=== PATIENT | male | born 1955 | race Caucasian/White ===

== ENCOUNTER 2017-04-29 06:59 | Emergency (ER) | payer OTHER, SELFPAY ==
[2017-04-29 07:00] VITALS: BP 172/87; PULSE 58; RESP 17; TEMP 36.6; O2SAT 94; BMI 28.5
--- NOTE | 2017-04-29 07:12 | ED.VISSUMM ---
- ER Visit Summary Date of Service: 04/29/17 Chief Complaint: Left flank pain History of Present Illness: The patient is a 61 M presenting with left flank pain. He states it started yesterday. Pain was in his left flank radiating around to his abdomen. He had suprapubic pain as well. He complained of urinary frequency. He has had nausea and vomiting. Denies diarrhea. He has a history of kidney stones. Last night he went to the [facility] ED. He had a CT scan performed and was told that he did not have a kidney stone on CT scan. He did have blood in his urine. He was sent home on Percocet. He presents today due to persistent pain. On arrival to the ED, patient states his pain is now completely resolved. Physical Examination: Vitals are stable. Patient is afebrile. Alert no acute distress. HEENT exam is unremarkable. Neck is supple. Lungs are clear and equal bilaterally. Heart is regular rate and rhythm. Abdomen is soft nontender nondistended. No guarding or rebound Back: nontender, no CVA tenderness Extremities are unremarkable. Skin is warm and dry. Remainder of exam is unremarkable. Emergency Department Course and Treatment: Patient is given IV fluids, Zofran. While in the emergency department patient's pain began to come back. CBC was normal except for hemoglobin 12.9. Chemistries normal except glucose 128, BUN 21, creatinine 1.32. On reevaluation, patient now has pain more in the mid abdomen. Liver lipase were added on and are normal. EKG is normal sinus rhythm with no acute ischemic changes. Troponin is negative. CTA chest abdomen pelvis was obtained. CTA chest shows no evidence of PE or dissection. CTA abdomen and pelvis shows findings suggestive of a recently passed left ureteral calculus with a calculus at the base of the left side of the bladder. Left perinephric stranding. Patient has urinated since the CT scan and believes that he passed the stone. He now states his pain is completely resolved. He will follow-up with his primary care physician and urologist as needed. He is advised return to ED for any worsening complaints. Disposition: Discharge home Impression: Left flank pain, recently passed stone. This note was generated with [employer] dictation software. It may contain incorrect words, spelling, and punctuation that were not noted in review of the chart prior to signing ED Disposition - Plan for ED Patient: Disposition: Home or Assisted Living Chief Complaint: Flank Pain Instructions: ED Stone Renal Passed Referrals: Fritz Hernadez [Primary Care Provider] - Pavel Purdy MD [STAFF PHYSICIAN] -
[2017-04-29 07:20] LABS: Bacteria 0 SEEN /hpf (None Seen); White Blood Cells 0 SEEN /hpf (0-5)
[2017-04-29] MEDS: 0.9% Normal Saline 1,000 ML 1000 ML IV (07:24)
[2017-04-29 07:34] LABS: Absolute Lymphocyte Count 0.81 X10^3/ul (0.83-4.51); Absolute Neutrophil Count 7.2 X10^3/uL (2.0-7.7); Basophil# 0.01 X10^3/uL; Basophil% 0.1 % (0-1); Eosinophil# 0.01 X10^3/uL; Eosinophils% 0.1 % (0-5); Hematocrit 38.8 % (40-54); Hemoglobin 12.9 g/dl (13.0-16.5); Lymphocyte # 0.81 X10^3/ul (4.0); Lymphocyte % 9.7 % (19-41); Mean Corp Hgb Conc 33.2 g/gl (32-36); Mean Corpuscular Hgb 30.5 pg (27.0-32.0); Mean Corpuscular Volume 91.7 fL (80-94); Mean Platelet Vol. 9.6 fl (6.2-12.0); Monocyte# 0.39 X10^3/uL; Monocyte% 4.7 % (0-10); Neutrophil # 7.15 X10^3/uL (2.7-7.7); Neutrophil % 85.3 % (47-70); Platelet Count 160 K/mm3 (150-450); RBC Distribution Width CV 13.3 % (11.6-14.6); RBC Distribution Width SD 44.1 fl (35.1-43.9); Red Blood Count 4.23 M/mm3 (4.6-6.2); White Blood Count 8.4 K/mm3 (4.4-11.0)
[2017-04-29 07:35] LABS: POSITIVE COUNT NO; POSITIVE DIFFERENTIAL NO; POSITIVE MORPHOLOGY NO
[2017-04-29 07:36] LABS: Color, Urine Yellow (Yellow); Glucose, Dipstick Normal (Normal); Ketone-Dipstick Negative (Negative); Leukocyte Esterase-Dipstick Negative /ul (Negative); Nitrite-Dipstick Negative (Negative); Occult Blood-Urine 50 /ul (Negative); Protein-Dipstick 15 mg/dl (Negative); Specific Gravity, Urine 1.025 (1.002-1.030); Urine Bilirubin Dipstick Negative (Negative); Urine Clarity Clear (Clear); Urine Urobilinogen Normal (Normal)
[2017-04-29 07:45] LABS: Anion Gap 10 (5-15); BUN 21 mg/dL (7-18); BUN/Creat Ratio 15.9 RATIO (10-20); Calcium,Total 8.7 mg/dL (8.5-10.1); Chloride 107 mmol/L (98-107); Creatinine, Serum 1.32 mg/dL (0.70-1.30); EST Glomerular Filtration Rate 58 mL/min (>60); Est Glom Filt Rate - Afr Amer 70 mL/min (>60); Glucose 128 mg/dL (74-106); Potassium 4.6 mmol/L (3.5-5.1); Sodium Level 142 mmol/L (136-145)
[2017-04-29 07:47] LABS: Hyaline Cast 0-5 SEEN /lpf (0-5); Mucous, Urine 1+ /hpf (<or=2+); Red Blood Cells-Urine 0-5 SEEN /hpf (0-5); Squamous Epithelial Cells - UA 0-5 SEEN /hpf (0-5)
[2017-04-29 08:21] LABS: AST(SGOT) 24 U/L (15-37); Alanine Aminotransfer ALT/SGPT 30 U/L (16-61); Albumin, Serum 3.9 g/dL (3.2-5.0); Alkaline Phosphatase 76 U/L (45-117); Bilirubin, Direct 0.12 mg/dL (0.00-0.30); Globulin 3.5 g/dL (2.2-4.2); Lipase 127 U/L (73-393); Protein, Total 7.4 g/dL (6.4-8.2)
--- NOTE | 2017-04-29 08:30 | CT_ITS ---
STUDY: CTA CHEST REASON FOR EXAM: Male, 61 years old. Left flank pain and left groin pain. RADIATION DOSAGE (If Supplied By Facility): CTDIvol = ( 16.40 ) mGy, DLP = ( 1044.66 ) mGycm TECHNIQUE: The examination was performed with the intravenous administration of 100 ml of Isovue 370 contrast material. Post-processing of the angiographic images was performed, with multiplanar reformation and 3D reconstruction. Individualized dose optimization techniques were used for this CT. COMPARISON: None. FINDINGS: Normal enhancement of the main pulmonary artery and right and left pulmonary arteries. Normal enhancement of the bilateral peripheral pulmonary arteries. There is no demonstrated pulmonary embolism. Normal thoracic aorta and visualized great vessels. There is no demonstrated aortic dissection. Normal heart and pericardium. Normal mediastinum. Normal hilar regions. Normal visualized trachea and bronchi. The lungs are well expanded. Mild degree of dependent bibasilar atelectasis. Normal pleura. Normal chest wall structures. Normal osseous structures. Normal visualized upper abdomen. IMPRESSION: Normal CTA chest examination, without a demonstrated pulmonary embolism or arterial dissection. Electronically Signed: Jeffrey Sherman MD at 9:18 EST Tel [phone], Service support , STUDY: CT ABDOMEN AND PELVIS WITH CONTRAST REASON FOR EXAM: Male, 61 years old. Left-sided groin pain and flank pain. RADIATION DOSAGE (If Supplied By Facility): CTDIvol = ( 16.40 ) mGy, DLP = ( 1044.66 ) mGycm TECHNIQUE: Transaxial images were obtained from the dome of the diaphragm to the symphysis pubis without oral contrast. 100 ml of Isovue 370 contrast was administered. Sagittal and coronal images were reconstructed. Individualized dose optimization techniques were used for this CT. COMPARISON: None. FINDINGS: Mild degree of dependent bibasilar atelectasis. The visualized portions of the heart are within normal limits. Normal liver. Normal gallbladder and extrahepatic biliary system. Normal spleen. Normal pancreas. Normal bilateral adrenal glands. Normal right kidney. Left perinephric stranding. Thickening of the left pararenal spaces. Mild left hydronephrosis and left hydroureter. A tiny calcification is seen at the base of the bladder on the left side just distal to the left ureterovesical junction. This most likely presents a recently passed left ureteral calculus. Normal visualized stomach. Normal small intestine. There are multiple colonic diverticula consistent with diverticulosis. The appendix is visualized and appears normal. There is diffuse atherosclerotic calcification of the abdominal aorta, without a demonstrated aneurysm. Normal inferior vena cava. There is borderline retroperitoneal lymphadenopathy with enlarged nodes no greater than 10mm in the short axis diameter. Normal urinary bladder. There is a small umbilical hernia containing fat. Normal osseous structures. CT/CTA Chest W/WO Contrast IMPRESSION: Findings suggestive of a recently passed left ureteral calculus with a calculus at the base of the left side of the bladder. Left perinephric stranding. Electronically Signed: Jeffrey Sherman MD at 9:21 EST Tel [phone], Service support ,
--- NOTE | 2017-04-29 08:30 | CT_ITS ---
STUDY: CTA CHEST REASON FOR EXAM: Male, 61 years old. Left flank pain and left groin pain. RADIATION DOSAGE (If Supplied By Facility): CTDIvol = ( 16.40 ) mGy, DLP = ( 1044.66 ) mGycm TECHNIQUE: The examination was performed with the intravenous administration of 100 ml of Isovue 370 contrast material. Post-processing of the angiographic images was performed, with multiplanar reformation and 3D reconstruction. Individualized dose optimization techniques were used for this CT. COMPARISON: None. FINDINGS: Normal enhancement of the main pulmonary artery and right and left pulmonary arteries. Normal enhancement of the bilateral peripheral pulmonary arteries. There is no demonstrated pulmonary embolism. Normal thoracic aorta and visualized great vessels. There is no demonstrated aortic dissection. Normal heart and pericardium. Normal mediastinum. Normal hilar regions. Normal visualized trachea and bronchi. The lungs are well expanded. Mild degree of dependent bibasilar atelectasis. Normal pleura. Normal chest wall structures. Normal osseous structures. Normal visualized upper abdomen. IMPRESSION: Normal CTA chest examination, without a demonstrated pulmonary embolism or arterial dissection. Electronically Signed: Jeffrey Sherman MD at 9:18 EST Tel [phone], Service support , STUDY: CT ABDOMEN AND PELVIS WITH CONTRAST REASON FOR EXAM: Male, 61 years old. Left-sided groin pain and flank pain. RADIATION DOSAGE (If Supplied By Facility): CTDIvol = ( 16.40 ) mGy, DLP = ( 1044.66 ) mGycm TECHNIQUE: Transaxial images were obtained from the dome of the diaphragm to the symphysis pubis without oral contrast. 100 ml of Isovue 370 contrast was administered. Sagittal and coronal images were reconstructed. Individualized dose optimization techniques were used for this CT. COMPARISON: None. FINDINGS: Mild degree of dependent bibasilar atelectasis. The visualized portions of the heart are within normal limits. Normal liver. Normal gallbladder and extrahepatic biliary system. Normal spleen. Normal pancreas. Normal bilateral adrenal glands. Normal right kidney. Left perinephric stranding. Thickening of the left pararenal spaces. Mild left hydronephrosis and left hydroureter. A tiny calcification is seen at the base of the bladder on the left side just distal to the left ureterovesical junction. This most likely presents a recently passed left ureteral calculus. Normal visualized stomach. Normal small intestine. There are multiple colonic diverticula consistent with diverticulosis. The appendix is visualized and appears normal. There is diffuse atherosclerotic calcification of the abdominal aorta, without a demonstrated aneurysm. Normal inferior vena cava. There is borderline retroperitoneal lymphadenopathy with enlarged nodes no greater than 10mm in the short axis diameter. Normal urinary bladder. There is a small umbilical hernia containing fat. Normal osseous structures. CT/CT ANGIO ABD&PEL W/O&W/DYE IMPRESSION: Findings suggestive of a recently passed left ureteral calculus with a calculus at the base of the left side of the bladder. Left perinephric stranding. Electronically Signed: Jeffrey Sherman MD at 9:21 EST Tel [phone], Service support ,
--- NOTE | 2017-04-29 08:32 | EKG12_ITS ---
Test Reason : Blood Pressure : / mmHG Vent. Rate : 072 BPM Atrial Rate : 072 BPM P-R Int : 162 ms QRS Dur : 084 ms QT Int : 408 ms P-R-T Axes : 073 049 042 degrees QTc Int : 446 ms Normal sinus rhythm Normal ECG Confirmed by SALTY AQUINO MD ([id number]), editor news YASSINE LINDO ([id number]) on 05/02/2017 2:47:17 PM Referred By: DEWEY Confirmed By:SALTY AQUINO MD
[2017-04-29 08:44] VITALS: BP 148/69; PULSE 61; RESP 15; O2SAT 93
[2017-04-29 09:59] VITALS: BP 113/57; PULSE 74; RESP 15; O2SAT 96
--- NOTE | 2017-04-29 10:02 | ED.DEP ---
ED Disposition - Plan for ED Patient: Chief Complaint: Flank Pain Instructions: ED Stone Renal Passed Referrals: Fritz Hernadez [Primary Care Provider] - Pavel Purdy MD [STAFF PHYSICIAN] -
== END 2017-04-29 10:13 | disposition home or self-care (01) ==
PROVIDERS: Emergency Provider Emergency Medicine; PCP Family Medicine
DX: R10.9 Unspecified abdominal pain (principal); N21.0 Calculus in bladder; I25.10 Atherosclerotic heart disease of native coronary artery without angina pectoris; Z87.442 Personal history of urinary calculi; Z79.82 Long term (current) use of aspirin; Z79.899 Other long term (current) drug therapy
CPT/HCPCS: 71275; 74174; 80048; 80076; 81001; 83690; 84484; 85025; 93005; 96360; 96361; 99285; J7030; Q9967

== ENCOUNTER 2019-06-22 10:36 | Emergency (ER) | payer MEDICARE, OTHER, SELFPAY ==
[2019-06-22 10:38] VITALS: BP 154/95; PULSE 99; RESP 17; TEMP 36.6; O2SAT 97; BMI 28.3
--- NOTE | 2019-06-22 10:53 | CT_ITS ---
STUDY: CT ABDOMEN AND PELVIS WITHOUT CONTRAST REASON FOR EXAM: Male, 63 years old. RIGHT SIDED ABDOMEN PAIN X 2 DAYS, H/O KIDNEY STONES RADIATION DOSAGE (If Supplied By Facility): CTDIvol = ( 14.34 ) mGy, DLP = ( 788.07 ) mGycm TECHNIQUE: Transaxial images were obtained from the dome of the diaphragm to the symphysis pubis without oral contrast, and without intravenous contrast. Sagittal and coronal images were reconstructed. Individualized dose optimization techniques were used for this CT. COMPARISON: Comparison is made with prior study dated April 29, 2017. FINDINGS: Linear increased markings at the left lung base suggestive of left basilar atelectasis. Coronary artery calcification. Normal liver. Normal gallbladder and extrahepatic biliary system. Normal spleen. Normal pancreas. Normal bilateral adrenal glands. There is engorgement of the right kidney with a mild degree of the right perinephric stranding. Mild left perinephric stranding. Normal visualized stomach. Normal small intestine. Diverticula are also seen in the descending colon with increased markings in the surrounding peritoneal fat. This extends into the proximal sigmoid colon. This is in keeping with the noncomplicated diverticulitis involving the left hemicolon. There are multiple colonic diverticula consistent with diverticulosis. The appendix is visualized and appears normal. There is diffuse atherosclerotic calcification of the abdominal aorta and the major visceral branches, without a demonstrated aneurysm. Normal inferior vena cava. There is borderline retroperitoneal lymphadenopathy with enlarged nodes no greater than 10mm in the short axis diameter. Normal urinary bladder. There is calcification of the vas deferens. There is a small umbilical hernia containing fat. Small left inguinal hernia containing fat. Normal osseous structures. CT/Abdomen/Pelvis without Cont IMPRESSION: Findings in keeping with a mild degree of diverticulitis involving the left hemicolon. Mild degree of the bilateral perinephric stranding. Electronically Signed: Jeffrey Sherman, at 11:20 EDT , Service support ,
--- NOTE | 2019-06-22 10:58 | ED.DCSUM_ITS ---
History of Present Illness Informant: Patient - Abdominal Pain/Flank Pain Onset: Days - 2 days Context: Gradual Onset Timing: Intermittent Quality: Sharp, Stabbing Location: Right Flank Current Severity: Mild Maximum Severity: Severe Worsened by: Nothing Relieved by: Nothing - Nausea/Vomiting/Emesis GI Symptom: Negative for: Nausea, Vomiting - Diarrhea/Melena/Hematochezia GI Symptom: Negative for: Diarrhea, Melena, Hematochezia Associated Symptoms: Negative for: Dysuria, Frequency, Hematuria, Urgency Narrative: 63-year-old male presents with concern for kidney stone. He has a history of kidney stones. Most recent was about 2 years ago. He has a history of requiring a ureteral stent. He has been having intermittent right flank pain and right lower quadrant pain for the last 2 days. He had some leftover Percocet and he had to take 2 doses yesterday but has not had pain today. He is concerned for a kidney stone. He has been urinating normally. No dysuria, lisa turia, frequency or urgency. No fevers chills vomiting or diarrhea. No chest pain or shortness of breath. No back pain. Prior similar symptoms: Yes Recent Illness/Hospitalization: No <Nav Kearney - Last Filed: 06/22/19 11:32> <Albino Hines - Last Filed: 06/22/19 15:08> Chief Complaint: Abd Pain Past Medical History Prior records reviewed: Yes Past Medical History: - - kidney stones Surgical History: - - ureteral stent Lives: With Family Smoking Status: Never smoker Alcohol: None Drugs: None <Nav K[place] - Last Filed: 06/22/19 11:32> <Albino Hines - Last Filed: 06/22/19 15:08> - Allergies and Home Meds Allergies/Adverse Reactions: Allergies No Known Allergies Allergy (Verified 06/22/19 10:38) Primary Care Physician: Fritz Hernadez MD [Primary Care Provider] - Review of Systems All systems negative except as indicated General: Denies: Chills, Fever, Malaise Eyes: Denies: Visual changes - bilaterally, Blurred Vision - bilaterally, Diplopia ENT: Denies: Rhinorrhea, Sore throat Cardiovascular: Denies: Chest pain, Palpitations, Heart racing Respiratory: Denies: Dyspnea, Cough, Sputum, Dyspnea on exertion, Orthopnea, Paroxysmal nocturnal dyspnea Gastrointestinal: Reports: Abdominal pain. Denies: Nausea, Vomiting, Diarrhea, Constipation, Melena, Hematochezia Genitourinary: Denies: Dysuria, Hematuria, Frequency Musculoskeletal: Denies: Myalgias, Arthralgias, Neck pain, Back pain Skin: Denies: Rash, Abscess Neurological: Denies: Headache, Weakness Psych: Denies: Depression, Anxiety <Nav K[place]ney - Last Filed: 06/22/19 11:32> Physical Exam Vital Signs/Narrative: Vital Signs Temp Pulse Resp BP Pulse Ox 06/22/19 10:38 97.8 F 99 17 154/95 H 97 Inital Vital Signs reviewed: Yes General: Well nourished, Well developed, No Acute Distress Head: Normocephalic, Atraumatic Eyes: Perrl, EOMI ENT: Moist mucous membranes Neck: Supple, Nontender, No lymphadenopathy, No JVD Cardiovascular: Regular rate, Regular rhythm, No murmurs Respiratory: No distress, CTA bilaterally, Chest nontender Abdomen: Soft, Nontender, Nondistended, Normal bowel sounds, No masses Back: Nontender, Normal Inspection Extremities: Nontender, No edema Skin: Normal color, No rash Neurological: Alert, Oriented x3 Psychological: Normal affect, Normal Mood <Nav Kearney - Last Filed: 06/22/19 11:32> Vital Signs/Narrative: Vital Signs Pulse Resp BP Pulse Ox 06/22/19 11:42 74 15 134/62 H 98 <Albino Hines - Last Filed: 06/22/19 15:08> Diagnostic/Tx/Re-eval CT: Flank - Medical Decision Making On arrival patient was not having pain and he declined analgesia. He also refused labs. He did provide a urinalysis which showed no sign of infection. CT abdomen and pelvis without contrast was obtained and demonstrated mild di verticulitis left hemicolon as well as mild degree of bilateral perinephric stranding. Repeat exam patient remains pain-free. Vital signs stable. He is able to tolerate by mouth at this time. We will discharge the patient home with Augmentin. I did him return precautions. Discussed proper dieting. He was agreeable with plan. Laboratory Tests 06/22/19 Range/Units 10:53 Urine Color Yellow (Yellow) Urine Clarity Clear (Clear) Urine pH 5.0 (5.0 - 8.0) Ur Specific [place] 1.025 (1.002-1.030) Urine Protein 15 H (Negative) mg/dl Urine Glucose (UA) Normal (Normal) mg/dl Urine Ketones Negative (Negative) mg/dl Impressions Abdomen/Pelvis CT 06/22/19 10:53 IMPRESSION: Findings in keeping with a mild degree of diverticulitis involving the left hemicolon. Mild degree of the bilateral perinephric stranding. Electronically Signed: Jeffrey Colesnick, at 11:20 EDT , Service support , 06/22/19 10:53 Abdomen/Pelvis without Cont [CT] Stat Urine Occult Blood Negative (Negative) /ul Urine Nitrite Negative (Negative) Urine Bilirubin Negative (Negative) mg/dL Urine Urobilinogen Normal (Normal) mg/dl Ur Leukocyte Esterase Negative (Negative) /ul Urine RBC 0 SEEN (0-5) /hpf Urine WBC 0 SEEN (0-5) /hpf Ur Squamous Epith Cells 0 SEEN (0-5) /hpf Urine Bacteria 0 SEEN (None Seen) /hpf Urine Mucus 2+ (<or=2+) /hpf <Nav K[place]ney - Last Filed: 06/22/19 11:32> - Medical Decision Making Patient was seen with me. I did a [id number] examination with the patient. Patient presents with right-sided abdominal pain. Patient is concerned over possible kidney stone. Patient denies any dysuria or hematuria. Patient denies any fevers or chills. Patient denies any nausea or vomiting. Patient states the pain is constant. Patient states he took 2 doses of Percocet yesterday. Patient states his pain is better today. Vital signs are stable. Patient is afebrile. Patient is in no acute distress. Oral mucosa is pink and moist. Neck is supple. Trachea is midline. Is no JVD. Heart was regular rate and rhythm. Lungs are clear and equal bilateral. Abdomen is soft. Bowel sounds are normal. There is mild lower abdominal tenderness. There is no rebound or guarding noted. Cranial nerves II through XII are intact. There are no focal motor or sensory deficits noted. Patient did not want to have any lab work drawn. Urinalysis was obtained. There is no evidence of urinary tract infection. CT scan of the abdomen pelvis was obtained. There is diverticulitis noted. This was interpreted by the radiologist and reviewed by myself. Patient was in a prescription for Augmentin. Patient was instructed to follow- up with his primary care physician in 5 to 7 days. Patient understood and was agreeable with the plan. All questions were answered. <Albino Hines - Last Filed: 06/22/19 15:08> ED Disposition <Nav K[place] - Last Filed: 06/22/19 11:32> <Albino Hines - Last Filed: 06/22/19 15:08> - Plan for ED Patient: Disposition: Home or Assisted Living Diagnosis: Right flank pain, Diverticulitis Instructions: ED Diverticulitis Prescriptions: Amox/Clavulanate Tablet [Augmentin Tablet] 875 mg PO Q12H #20 tab Transmission Status: Received by [facility] GAYATHRI OVALLES Referrals: Fritz Hernadez MD [Primary Care Provider] -
[2019-06-22 11:05] LABS: Bacteria 0 SEEN /hpf (None Seen); Red Blood Cells-Urine 0 SEEN /hpf (0-5); Squamous Epithelial Cells - UA 0 SEEN /hpf (0-5); White Blood Cells 0 SEEN /hpf (0-5)
[2019-06-22 11:10] LABS: Color, Urine Yellow (Yellow); Glucose, Dipstick Normal (Normal); Ketone-Dipstick Negative (Negative); Leukocyte Esterase-Dipstick Negative /ul (Negative); Nitrite-Dipstick Negative (Negative); Occult Blood-Urine Negative /ul (Negative); Protein-Dipstick 15 mg/dl (Negative); Specific Gravity, Urine 1.025 (1.002-1.030); Urine Bilirubin Dipstick Negative (Negative); Urine Clarity Clear (Clear); Urine Urobilinogen Normal (Normal)
[2019-06-22 11:17] LABS: Mucous, Urine 2+ /hpf (<or=2+)
[2019-06-22 11:42] VITALS: BP 134/62; PULSE 74; RESP 15; O2SAT 98
== END 2019-06-22 11:44 | disposition home or self-care (01) ==
PROVIDERS: Emergency Provider Physician Assistant Medical; PCP Family Medicine
DX: K57.92 Diverticulitis of intestine, part unspecified, without perforation or abscess without bleeding (principal); Z87.442 Personal history of urinary calculi
CPT/HCPCS: 74176; 81001; 99282

== ENCOUNTER 2020-07-04 13:40 | Emergency (ER) | payer MEDICARE, OTHER, SELFPAY ==
[2020-07-04 13:42] VITALS: BP 150/90; PULSE 80; RESP 17; TEMP 36.7; O2SAT 96; BMI 28.5
--- NOTE | 2020-07-04 14:22 | EKG12_ITS ---
Test Reason : CP Blood Pressure : / mmHG Vent. Rate : 071 BPM Atrial Rate : 071 BPM P-R Int : 156 ms QRS Dur : 086 ms QT Int : 374 ms P-R-T Axes : 067 032 029 degrees QTc Int : 406 ms Normal sinus rhythm Normal ECG Confirmed by MILES TALAVERA, SALTY ([id number]), writer editor PAULA DHILLON ([id number]) on 07/08/2020 9:29:06 AM Referred By: FARRAH/SAMY Confirmed By:SALTY AQUINO MD
--- NOTE | 2020-07-04 14:22 | ED.VIS.CHEST ---
HPI History of Present Illness Chief Complaint: Chest Pain Informant: patient Narrative Narrative: Patient presents with left arm pain. He states he was at a local store when he felt pain on the posterior part of the left shoulder that radiated down to the left elbow on the posterior side. It was minimally worse with movement. He states it did improved with rest. He had a similar episode 2 weeks ago while sitting in a recliner that resolved on its own. He had no chest pain, shortness of breath, dizziness or lightheadedness. He is concerned because he has a history of coronary disease and had a stent placed about 10 years ago. He denies any recent fevers. No neck or back pain currently. [facility] Medical History (Updated 07/04/20 @ 15:[address] Chris Mccoy MD) Myocardial infarct Home Medications aspirin 81 mg PO DAILY@0800 04/29/17 [History Last Taken 06/22/19] atorvastatin 5 mg PO QHS 04/29/17 [History Last Taken 06/22/19] lisinopril 2.5 mg PO DAILY 04/29/17 [History Last Taken 06/22/19] metoprolol succinate 25 mg PO BID 04/29/17 [History Last Taken 06/22/19] Allergy/AdvReac Type Severity Reaction Status Date / Time No Known Allergies Allergy Verified 07/04/20 13:41 Surgical History (Updated 07/04/20 @ 14:43 by Steffi Castrejon) History of coronary artery stent placement Social History Smoking Status: Never smoker ROS ROS ED Constitutional Constitutional ED: Denies chills or fever(s) Eyes Eyes: Denies blurry vision, change in vision or diplopia ENT ENT ED: Denies ear pain, rhinorrhea or sore throat Cardiovascular Cardiovascular: Denies chest pain or palpitations Respiratory/Chest Respiratory/Chest: Denies cough, dyspnea or sputum Gastrointestinal Gastrointestinal: Denies abdominal pain, diarrhea, nausea or vomiting Genitourinary Genitourinary ED: Denies dysuria, hematuria or urinary frequency Musculoskeletal Musculoskeletal: Reports other Details: Left arm pain Integumentary Denies change in pigmentation or rash Neurologic Neurologic: Denies headache(s), numbness or weakness Psychiatric Psychiatric: Denies anxiety or depression Endocrine Endocrinology: Denies polydipsia or polyuria EXAM Physical Exam Const Vital Signs: 07/04/20 13:42 07/04/20 14:36 Temperature 98.0 F Temperature Source Temporal Pulse Rate 80 65 Respiratory Rate 17 12 Blood Pressure 150/90 H 126/76 H Blood Pressure Mean 110 92 Pulse Ox 96 96 Oxygen Delivery Method Room Air Room Air Positive well nourished and well developed General Appearance ED: well developed and NAD HEENT Reports moist mucous membranes normocephalic and atraumatic; Negative for tenderness Eyes PERRL and EOMs intact bilaterally Neck supple and no JVD Chest Wall Chest: Negative for tenderness Resp normal respiratory effort and clear to auscultation bilaterally Effort and Inspection: Negative for respiratory distress Cardio regular rate, regular rhythm and no murmurs Rate: regular rate Rhythm: regular rhythm GI soft to palpation, non-tender and non-distended Palpation: soft Back/Spine no CVA tenderness and no thoracic nor lumbar tenderness Back/Spine Narrative: Spurling test is negative Cervical Spine: Negative for cervical spine tenderness Extremity normal to inspection and full ROM Extremity Narrative: Left arm has full range of motion. No specific tenderness. General Extremety ED: Negative for tenderness Neuro oriented x3, CN's II-XII intact bilaterally and no sensory deficits noted Sensorium / Orientation: awake and alert Motor Exam: strength 5/5 throughout Psych mental status grossly normal Skin no rashes or lesions noted MDM MDM MDM Narrative Medical decision making narrative: The patient had laboratory studies which were unremarkable. His troponin is normal. He never had any chest pain. His EKG was sinus rhythm. I feel this is likely more of a radicular pain. He has been pain-free ever since has been the emergency department. He would like to go home. He will call his doctor for follow-up. Lab Data Labs: Laboratory Results - last 24 hr 07/04/20 07/04/20 14:16 14:16 WBC 6.0 RBC 4.73 Hgb 14.1 Hct 43.5 MCV 92.0 MCH 29.8 MCHC 32.4 RDW Std Deviation 43.8 RDW Coeff of Beau 12.8 Plt Count 206 MPV 9.7 Immature Gran % (Auto) 0.300 Neut % (Auto) 55.4 Lymph % (Auto) 29.8 [place] % (Auto) 12.8 H Eos % (Auto) 1.2 Baso % (Auto) 0.5 Absolute Neuts (auto) 3.3 Absolute Lymphs (auto) 1.79 Nucleated RBC % 0 Sodium 139 Potassium 4.0 Chloride 103 Carbon Dioxide 30.0 Anion Gap 6 BUN 18 Creatinine 1.11 Estim Creat Clear Calc 76.11 Est GFR (MDRD) Af Amer 85 Est GFR (MDRD) Non-Af 70 BUN/Creatinine Ratio 16.2 Glucose 99 Calcium 9.4 Troponin I < 0.015 EKG Initial EKG: Comments: Normal sinus rhythm with rate of 71. No ST changes. QTc 406, ID [id number] Discharge Plan Triage Chief Complaint: Chest Pain ED Provider: Chris Mccoy Dx/Rx/DC Orders Clinical Impression: Arm pain, left Instructions: ED Radiculopathy, Cervical Prescriptions: No Action atorvastatin 10 MG tablet 5 mg PO QHS RF: 0 aspirin 81 MG tablet,chewable 81 mg PO DAILY@0800 RF: 0 metoprolol succinate 25 MG tablet extended release 24 hr 25 mg PO BID RF: 0 lisinopril 2.5 MG tablet 2.5 mg PO DAILY RF: 0 Referrals: Lashae Garduno [Other] Disposition Disposition: Home, self care
[2020-07-04 14:36] VITALS: BP 126/76; PULSE 65; RESP 12; O2SAT 96
[2020-07-04 14:40] LABS: Absolute Lymphocyte Count 1.79 X10^3/uL (0.83-4.51); Absolute Neutrophil Count 3.3 X10^3/uL (2.0-7.7); Basophil# 0.03 X10^3/uL; Basophil% 0.5 % (0-1); Eosinophil# 0.07 X10^3/uL; Eosinophils% 1.2 % (0-5); Hematocrit 43.5 % (40-54); Hemoglobin 14.1 g/dL (13.0-16.5); Lymphocyte # 1.79 X10^3/ul (0.83-4.51); Lymphocyte % 29.8 % (19-41); Mean Corp Hgb Conc 32.4 g/dL (32-36); Mean Corpuscular Hgb 29.8 pg (27.0-32.0); Mean Platelet Vol. 9.7 fl (6.2-12.0); Monocyte# 0.77 X10^3/uL; Monocyte% 12.8 % (0-10); NRBC Flagged by Analyzer 0 % (0-5); Neutrophil # 3.33 X10^3/uL (2.7-7.7); Neutrophil % 55.4 % (47-70); Platelet Count 206 K/mm3 (150-450); RBC Distribution Width CV 12.8 % (11.6-14.6); RBC Distribution Width SD 43.8 fl (35.1-43.9); Red Blood Count 4.73 M/mm3 (4.6-6.2)
[2020-07-04 14:55] LABS: Anion Gap 6 (5-15); BUN 18 mg/dL (7-18); BUN/Creat Ratio 16.2 RATIO (10-20); Calcium,Total 9.4 mg/dL (8.5-10.1); Chloride 103 mmol/L (98-107); Creatinine, Serum 1.11 mg/dL (0.70-1.30); EST Glomerular Filtration Rate 70 mL/min (>60); Est Glom Filt Rate - Afr Amer 85 mL/min (>60); Estimated Creatinine Clearance 76.11 ml/min; Glucose 99 mg/dL (74-106); Sodium Level 139 mmol/L (136-145)
[2020-07-04 15:10] VITALS: BP 132/76; PULSE 78; RESP 16; O2SAT 98
== END 2020-07-04 15:11 | disposition home or self-care (01) ==
PROVIDERS: Emergency Provider Emergency Medicine
DX: M79.602 Pain in left arm (principal); Z95.5 Presence of coronary angioplasty implant and graft
CPT/HCPCS: 80048; 84484; 85025; 93005; 99283; A4216

== ENCOUNTER 2021-10-08 13:49 | Emergency (ER) | payer MEDICARE, OTHER, SELFPAY ==
[2021-10-08 13:49] VITALS: RESP 18
[2021-10-08 13:50] VITALS: BP 147/90; PULSE 72; RESP 14; TEMP 37; O2SAT 98; BMI 28.0
[2021-10-08 14:49] VITALS: RESP 16
--- NOTE | 2021-10-08 15:07 | CT_ITS ---
STUDY: CT Abdomen And Pelvis W/ Contrast Injection 10/08/2021 4:20 PM REASON FOR EXAM: Male, 66 years old. ABDOMINAL PAIN ??diverticulitis vs kidney stone TECHNIQUE: Transaxial images were obtained without oral contrast, and with IV 100mL Isovue-300 intravenous contrast. Individualized dose optimization techniques were used for this CT. COMPARISON: Jun 22 2019 11:02am FINDINGS: There are atherosclerotic calcifications of visualized coronary arteries. The visualized portions of the heart are within normal limits. Unremarkable liver. Unremarkable gallbladder and extrahepatic biliary system. Unremarkable spleen. Unremarkable pancreas. Unremarkable bilateral adrenal glands. Non obstructive 2 mm right renal parenchymal stones. No acute findings of the left kidney. Unremarkable visualized stomach. Unremarkable small intestine. There are multiple colonic diverticula consistent with diverticulosis. The appendix is visualized and appears unremarkable. There are calcifications of the abdominal aorta. This is consistent for atherosclerotic disease. There is no abdominal aortic aneurysm. Unremarkable inferior vena cava. Subcentimeter mesenteric lymph nodes. Unremarkable urinary bladder. There is a left-sided inguinal hernia containing adipose tissue. There is an umbilical hernia containing fat. There are diffuse degenerative changes of the visualized lumbar spine. Degenerative findings of the hips. CT/Abdomen/Pelvis W IV Cont ONLY IMPRESSION: (NOT LISTED IN ORDER OF SIGNIFICANCE) There are multiple colonic diverticula consistent with diverticulosis. Non obstructive 2 mm right renal parenchymal stones. Other findings as above. Electronically Signed: Saad Moon MD at 16:22 EDT ,
--- NOTE | 2021-10-08 15:19 | ED.VIS.GI ---
HPI HPI - GI History of Present Illness Chief Complaint: Flank Pain Detail of Chief Complaint: Suprapubic abdominal pain Informant: patient Abdominal Pain/Flank Pain Onset: Days Context: Gradual Onset Timing: Continuous Quality: Aching Current Severity: Mild Maximum Severity: Mild Worsened by: Nothing Relieved by: Nothing Nausea/Vomiting/Emesis GI Symptom: Negative for Nausea or Vomiting Diarrhea/Melena/Hematochezia GI Symptom: Negative for Diarrhea, Melena or Hematochezia Associated Symptoms Associated Symptoms: Positive for Frequency; Negative for Dysuria, Hematuria or Urgency Narrative Narrative: 58-year-old male history of kidney stones, CAD with a stent and prior diverticulitis. Patient has had a history of strep. Abdominal discomfort. He has a business trip coming up and he wants to make sure he is either not developing a urinary tract infection or diverticulitis or has a kidney stone. He does state that he has urinary frequency. He sometimes gets up several times a night to urinate. And often when he urinates he has to go again within half an hour. He denies any gross hematuria or dysuria. He denies any fever or chills. He denies any diarrhea or constipation. He has never been told he enlarged prostate. Prior similar symptoms: Yes Recent Illness/Hospitalization: No PFSH PFS Medical History Myocardial infarct Home Medications aspirin 81 mg chewable tablet 81 mg PO DAILY@0800 04/29/17 [History Last Taken 06/22/19] atorvastatin 10 mg tablet 5 mg PO QHS 04/29/17 [History Last Taken 06/22/19] lisinopril 2.5 mg tablet 2.5 mg PO DAILY 04/29/17 [History Last Taken 06/22/19] metoprolol succinate 25 mg tablet,extended release 24 hr 25 mg PO BID 04/29/17 [History Last Taken 06/22/19] omeprazole 20 mg capsule,delayed release 20 mg PO DAILY 10/08/21 [History Last Taken Unknown] Allergy/AdvReac Type Severity Reaction Status Date / Time No Known Allergies Allergy Verified 10/08/21 13:50 Surgical History History of coronary artery stent placement Social History Smoking Status: Never smoker ROS ROS ED ROS Narrative Urinary frequency. Suprapubic abdominal pain. Review of Systems ROS Unobtainable: Denies due to encephalopathy Constitutional Constitutional ED: Denies chills or fever(s) ENT ENT ED: Denies ear pain Cardiovascular Cardiovascular: Denies chest pain Respiratory/Chest Respiratory/Chest: Denies cough or dyspnea Gastrointestinal Gastrointestinal: Reports abdominal pain; Denies constipation, diarrhea, melena, nausea or vomiting Genitourinary Genitourinary ED: Reports urinary frequency; Denies dysuria or hematuria Musculoskeletal Musculoskeletal: Denies arthralgias Integumentary Denies abscess Neurologic Neurologic: Denies headache(s) Psychiatric Psychiatric: Denies anxiety Endocrine Endocrinology: Denies polydipsia Hematologic/Lymphatic Hematologic/Lymphatic: Denies easy bleeding Allergic/Immunologic Allergic/Immunologic ED: Denies mouth swelling EXAM Physical Exam Narrative Exam Narrative: 58-year-old male no acute distress vital signs stable afebrile. HEENT exam unremarkable. Lungs are clear. Heart regular rhythm no murmur. Abdomen soft nontender nondistended normal bowel sounds no peritoneal signs. No organomegaly or masses. I do not feel a large bladder. Moving all 4 extremities. Calves nontender without edema. Back nontender. Neurologically is awake and alert. Const Vital Signs: 10/08/21 13:50 10/08/21 13:49 10/08/21 14:49 Temperature 98.6 F Temperature Source Temporal Pulse Rate 72 Respiratory Rate 14 18 16 Blood Pressure 147/90 H Blood Pressure Mean 109 Pulse Ox 98 Oxygen Delivery Method Room Air 10/08/21 15:49 10/08/21 16:49 Temperature Temperature Source Pulse Rate Respiratory Rate 18 18 Blood Pressure Blood Pressure Mean Pulse Ox Oxygen Delivery Method Positive well nourished and well developed; Negative for obese, cachectic, contractures or unkempt General Appearance ED: well developed and NAD; Negative for unkempt, cachectic, contractures or pallor Nutritional Appearance: Negative for cachectic or obese HEENT Reports moist mucous membranes normocephalic and atraumatic; Negative for tenderness Eyes PERRL and EOMs intact bilaterally General Eye ED: Negative for pale conjunctiva or scleral icterus Neck no lymphadenopathy, supple and no JVD General: Negative for tenderness Carotids: Negative for other Lymph Lymphatic: Negative for other Resp normal respiratory effort and clear to auscultation bilaterally Effort and Inspection: Negative for respiratory distress or retractions Auscultation: Negative for rales, rhonchi or wheezes Cardio regular rate, regular rhythm, S1 normal heart sound, S2 normal heart sound and no murmurs Rate: Negative for bradycardia Rhythm: Negative for abnormal rhythm GI non-tender, non-distended and no masses Inspection: Negative for abdominal distention Auscultation: normoactive bowel sounds Palpation: soft; Negative for tender, guarding, rigid, hepatomegaly, splenomegaly, hernia, mass, pulsatile mass or rebound tenderness present Back/Spine no CVA tenderness General Back: Negative for CVA tenderness Cervical Spine: Negative for cervical spine tenderness Thoracic Spine / Upper Back: Negative for thoracic spinal tenderness Lumbar Spine / Lower Back: Negative for lumbar spinal tenderness Coccyx: Negative for other Extremity full ROM General Extremety ED: Negative for edema or tenderness General Extremity: Negative for edema Neuro CN's II-XII intact bilaterally and moves all extremities Sensorium / Orientation: alert, oriented to person, oriented to place and oriented to time; Negative for orientation impaired, confused, lethargic or stuporous Sensory Exam: No sensory level loss detected Motor Exam: strength 5/5 throughout; Negative for general weakness Psych mental status grossly normal and thought process normal Appearance: Negative for unkempt Attitude: No agitated Mood & Affect: Negative for depressed, anxious or tearful Skin no wounds General Skin Exam: Negative for jaundice or pallor Lesions: no lesions Rashes: no rashes Trauma: Negative for abrasion Nails: Negative for discolored MDM MDM MDM Narrative Medical decision making narrative: 66-year-old male with suprapubic abdominal discomfort. Differential would include enlarged prostate with urinary retention. UTI. Diverticulitis or even a kidney stone which I think is less likely. CAT scan labs are pending. Along with a bladder scan. Repeat exam patient doing well at 5:37 PM. Exam benign. He and I went over all of his test that were normal. He will be discharged home with outpatient follow-up. Lab Data Attestation: I reviewed the patient's lab results. Lab results narrative: CBC unremarkable white count of 5 H&H 14 and 41. Platelets 202. Electrolytes unremarkable gap of 5 normal BUN and creatinine of 1 glucose of 106. UA negative no whites no reds no bacteria no nitrates. CAT scan no acute abnormality. Diverticulosis and renal stones but no acute cause for his discomfort. Bladder scan was only 40 no signs of urinary retention. Labs: Laboratory Results - last 24 hr 10/08/21 10/08/21 10/08/21 15:11 15:11 15:11 WBC 5.8 RBC 4.63 Hgb 14.2 Hct 41.9 MCV 90.5 MCH 30.7 MCHC 33.9 RDW Std Deviation 44.1 H RDW Coeff of Beau 13.4 Plt Count 202 MPV 9.9 Immature Gran % (Auto) 0.200 Neut % (Auto) 46.3 L Lymph % (Auto) 38.0 [place] % (Auto) 12.9 H Eos % (Auto) 1.9 Baso % (Auto) 0.7 Absolute Neuts (auto) 2.7 Absolute Lymphs (auto) 2.21 Nucleated RBC % 0 Sodium 141 Potassium 4.2 Chloride 107 Carbon Dioxide 29.0 Anion Gap 5 BUN 16 Creatinine 1.00 Estim Creat Clear Calc 82.20 Est GFR (MDRD) Af Amer 96 Est GFR (MDRD) Non-Af 79 BUN/Creatinine Ratio 16.0 Glucose 106 Calcium 9.1 Urine Color Straw Urine Clarity Clear Urine pH 7.0 Ur Specific [place] 1.005 Urine Protein Negative Urine Glucose (UA) Normal Urine Ketones Negative Urine Occult Blood Negative Urine Nitrite Negative Urine Bilirubin Negative Urine Urobilinogen Normal Ur Leukocyte Esterase Negative Urine RBC 0 SEEN Urine WBC 0 SEEN Ur Squamous Epith Cells 0 SEEN Urine Bacteria 0 SEEN Urine Mucus 0 SEEN Radiography Diagnostic Testing: Clinical Impression(s) from Imaging Studies Abdomen/Pelvis CT 10/08/21 15:07 IMPRESSION: (NOT LISTED IN ORDER OF SIGNIFICANCE) There are multiple colonic diverticula consistent with diverticulosis. Non obstructive 2 mm right renal parenchymal stones. Other findings as above. Electronically Signed: Saad Moon MD at 16:22 EDT , Discharge Plan Triage Chief Complaint: Flank Pain ED Provider: Slade Erwin Dx/Rx/DC Orders Clinical Impression: Abdominal pain Instructions: Abdominal Pain Prescriptions: No Action atorvastatin 10 MG tablet 5 mg PO QHS aspirin 81 MG tablet,chewable 81 mg PO DAILY@0800 metoprolol succinate 25 MG tablet extended release 24 hr 25 mg PO BID lisinopril 2.5 MG tablet 2.5 mg PO DAILY omeprazole 20 mg capsule,delayed release(DR/EC) 20 mg PO DAILY Label Comments: take 1 capsule by mouth once daily Primary Care Provider: TRAY ROMERO Referrals: TRAY ROMERO [Other] Activity Restrictions/Additional Instructions: Your CAT scan, labs and urinalysis were all negative. No signs of acute diverticulitis. No acute kidney stone. No urinary tract infection. This should improve if not follow-up with your doctor for further evaluation. Tylenol for pain. Disposition Disposition: Home, Self Care
[2021-10-08 15:23] LABS: Bacteria 0 SEEN /hpf (None Seen); Mucous, Urine 0 SEEN /hpf (<or=2+); Red Blood Cells-Urine 0 SEEN /hpf (0-5); Squamous Epithelial Cells - UA 0 SEEN /hpf (0-5); White Blood Cells 0 SEEN /hpf (0-5)
[2021-10-08 15:25] LABS: Absolute Lymphocyte Count 2.21 X10^3/uL (0.83-4.51); Absolute Neutrophil Count 2.7 X10^3/uL (2.0-7.7); Basophil# 0.04 X10^3/uL; Basophil% 0.7 % (0-1); Eosinophil# 0.11 X10^3/uL; Eosinophils% 1.9 % (0-5); Hematocrit 41.9 % (40-54); Hemoglobin 14.2 g/dL (13.0-16.5); Lymphocyte # 2.21 X10^3/ul (0.83-4.51); Mean Corp Hgb Conc 33.9 g/dL (32-36); Mean Corpuscular Hgb 30.7 pg (27.0-32.0); Mean Corpuscular Volume 90.5 fL (80-94); Mean Platelet Vol. 9.9 fl (6.2-12.0); Monocyte# 0.75 X10^3/uL; Monocyte% 12.9 % (0-10); NRBC Flagged by Analyzer 0 % (0-5); Neutrophil # 2.69 X10^3/uL (2.7-7.7); Neutrophil % 46.3 % (47-70); Platelet Count 202 K/mm3 (150-450); RBC Distribution Width CV 13.4 % (11.6-14.6); RBC Distribution Width SD 44.1 fl (35.1-43.9); Red Blood Count 4.63 M/mm3 (4.6-6.2); White Blood Count 5.8 K/mm3 (4.4-11.0)
[2021-10-08 15:26] LABS: Color, Urine Straw (Yellow); Glucose, Dipstick Normal (Normal); Ketone-Dipstick Negative (Negative); Leukocyte Esterase-Dipstick Negative /ul (Negative); Nitrite-Dipstick Negative (Negative); Occult Blood-Urine Negative /ul (Negative); Protein-Dipstick Negative (Negative); Specific Gravity, Urine 1.005 (1.002-1.030); Urine Bilirubin Dipstick Negative (Negative); Urine Clarity Clear (Clear); Urine Urobilinogen Normal (Normal)
[2021-10-08 15:38] LABS: Anion Gap 5 (5-15); BUN 16 mg/dL (7-18); Calcium,Total 9.1 mg/dL (8.5-10.1); Chloride 107 mmol/L (98-107); EST Glomerular Filtration Rate 79 mL/min (>60); Est Glom Filt Rate - Afr Amer 96 mL/min (>60); Glucose 106 mg/dL (74-106); Potassium 4.2 mmol/L (3.5-5.1); Sodium Level 141 mmol/L (136-145)
[2021-10-08 15:49] VITALS: RESP 18
[2021-10-08 16:49] VITALS: RESP 18
[2021-10-08 18:18] VITALS: RESP 16
== END 2021-10-08 18:19 | disposition home or self-care (01) ==
PROVIDERS: Emergency Provider Emergency Medicine; Visit Provider Emergency Medicine
DX: R10.9 Unspecified abdominal pain (principal); I25.10 Atherosclerotic heart disease of native coronary artery without angina pectoris; R35.0 Frequency of micturition; Z95.5 Presence of coronary angioplasty implant and graft; Z79.82 Long term (current) use of aspirin; Z79.899 Other long term (current) drug therapy
CPT/HCPCS: 74177; 80048; 81001; 85025; 99283; Q9967; A4216

== ENCOUNTER 2024-05-30 12:10 | Emergency (ER) | payer MEDICARE, OTHER, SELFPAY ==
[2024-05-30 12:11] VITALS: BP 156/86; PULSE 99; RESP 18; TEMP 36.2; O2SAT 98; BMI 28.2
--- NOTE | 2024-05-30 12:17 | EKG12_ITS ---
Test Reason : LEFT ARM PAIN Blood Pressure : */* mmHG Vent. Rate : 81 BPM Atrial Rate : 81 BPM P-R Int : 164 ms QRS Dur : 84 ms QT Int : 360 ms P-R-T Axes : 18 31 38 degrees QTcB Int : 418 ms Normal sinus rhythm Normal ECG Confirmed by MILES TALAVERA, SALTY ([id number]), restaurant expeditor PAULA DHILLON ([id number]) on 05/31/2024 8:36:39 AM Referred By: Confirmed By: SALTY AQUINO MD
--- NOTE | 2024-05-30 12:18 | EX.ED.UPPERE ---
HPI History of Present Illness Chief Complaint: Upper Extremity Injury Narrative Narrative: 68-year-old male past medical history of coronary artery disease had stenting 11 years ago presents with left shoulder pain that began yesterday. He states his left shoulder was sore, and now today whenever he tries to move his left shoulder, he gets sharp pain. It is mainly deep within his left shoulder radiating down his arm. He denies any nausea or vomiting, no chest pain or shortness of breath. 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 He is right-hand dominant. He denies any recent overhead work or overuse of his arms. He states that when he tries to take his left arm away from his body, he gets a sharp pain in his left shoulder. [facility] Medical History Myocardial infarct Home Medications ?Medication ?Instructions ?Recorded ?Last Taken ?Type aspirin 81 mg chewable tablet 81 mg PO DAILY@0800 04/29/17 06/22/19 History lisinopril 2.5 mg tablet 2.5 mg PO DAILY 04/29/17 06/22/19 History omeprazole 20 mg capsule,delayed 20 mg PO DAILY 10/08/21 Unknown History release atorvastatin 40 mg tablet 40 mg PO DAILY 05/30/24 Unknown History famotidine 20 mg tablet 20 mg PO QHS 05/30/24 Unknown History metoprolol tartrate 25 mg tablet 25 mg PO BID 05/30/24 Unknown History semaglutide 0.25 mg or 0.5 mg (2 0.5 mg subcut QWEEK 05/30/24 Unknown History mg/3 mL) subcutaneous pen injector (Ozempic) tamsulosin 0.4 mg capsule 0.4 mg PO DAILY 05/30/24 Unknown History Allergy/AdvReac Type Severity Reaction Status Date / Time No Known Allergies Allergy Verified 05/30/24 12:11 Surgical History History of coronary artery stent placement Social History Smoking Status: Never smoker ROS ROS ED ROS Narrative Review of systems positive for left shoulder pain worse with movement. No chest pain, shortness of breath, fever, chills, cough, or other symptoms. Pain described as sharp and stabbing with movement of left shoulder and upper arm. No recent falls. No neck pain. EXAM Physical Exam Narrative Exam Narrative: Afebrile. Vital signs noted. Nontoxic-appearing. Cardiovascular examination reveals a regular rate and rhythm. Lungs are clear to auscultation bilaterally. Abdomen is soft, nontender, with positive bowel sounds. No guarding or rebound. Examination of the left shoulder reveals no evidence of crepitance. He has slight diffuse tenderness to palpation in the bicipital groove. Neurovascular intact distally with palpable radial pulse, left. Able to oppose thumb. Able to flex and extend the elbow. Onset of pain with movement of the left shoulder even to 20 degrees. No vertebral point tenderness or bony step-off of neck, no trapezial pain. Const Vital Signs: 05/30/24 12:11 Temperature 97.1 F L Temperature Source Temporal Pulse Rate 99 Respiratory Rate 18 Blood Pressure 156/86 H Blood Pressure Mean 109 Pulse Ox 98 Oxygen Delivery Method Room Air MDM MDM MDM Narrative Medical decision making narrative: Differential diagnosis includes but not limited to impingement syndrome versus bicipital tendinitis versus cervical radiculopathy versus necrotizing fasciitis. History and physical does not support necrotizing fasciitis. Also the differential diagnosis would be acute coronary syndrome, but I have low suspicion for this as well as history and physical does not support this. Given his history of coronary artery disease, EKG will be obtained as well as x-rays of the left shoulder to help rule out fracture or effusion. Clinically I have low suspicion for septic arthritis as well as he is not febrile. I do not feel that he requires laboratory work. EKG was obtained and interpreted by myself independently as normal sinus rhythm at 81 bpm without ectopy or acute ST changes. No STEMI. X-rays of the left shoulder interpreted by myself independently as well. On my independent interpretation, I see no evidence of an acute fracture or dislocation of the left shoulder, but there is calcification along the tendon. I reviewed the radiology report which confirms my independent interpretation. At this point in time, I feel he can be discharged to follow-up with orthopedics. He states that he will take [id number] medications as needed and he does have a prescription for stronger pain medications which he takes as needed usually for kidney stones. I feel he can be discharged with follow-up to orthopedics as needed given the calcific tendinitis of the left shoulder. Once again, his pain is worse with movement so I do not feel that it is related to his coronary artery disease. Patient is motivated for discharge. Return instructions to the emergency department were reviewed. Disposition is discharged home in stable condition. History & Record Review Discussion w/independent historian: Patient Radiography X-Ray: Read by ED Physician, Read by Radiologist, Normal and - (Calcific tendinitis left shoulder) Discharge Plan Triage Chief Complaint: Upper Extremity Injury ED Provider: Vitor Maldonado Dx/Rx/DC Orders Clinical Impression: Acute pain of left shoulder, Calcific tendinitis of left shoulder Instructions: ED Shoulder Impingement Syndrome, ED Tendonitis, ED Shoulder Pain, Uncertain Cause Prescriptions: No Action aspirin 81 MG tablet,chewable 81 mg PO DAILY@0800 lisinopril 2.5 MG tablet 2.5 mg PO DAILY omeprazole 20 mg capsule,delayed release(DR/EC) 20 mg PO DAILY Patient Comments: take 1 capsule by mouth once daily atorvastatin 40 mg tablet 40 mg PO DAILY famotidine 20 mg tablet 20 mg PO QHS tamsulosin 0.4 mg capsule 0.4 mg PO DAILY metoprolol tartrate 25 mg tablet 25 mg PO BID Ozempic 0.25 mg or 0.5 mg (2 mg/3 mL) pen injector 0.5 mg subcut QWEEK Primary Care Provider: TRAY ROMERO Referrals: TRAY ROMERO [Other] Zay Don MD [Med Staff - Active Staff] - 1 Week if not improving Activity Restrictions/Additional Instructions: [id number] medications as needed for pain. Follow-up with orthopedics. Return with increased pain, new or worsening symptoms. Print Language: Icelandic Disposition Disposition: Home, Self Care
--- NOTE | 2024-05-30 12:30 | RAD_ITS ---
PROCEDURE: SHOULDER MIN 2 VIEWS 05/30/2024 REASON FOR EXAM: PAIN TECHNIQUE: Four views of the left shoulder COMPARISON: No relevant prior FINDINGS: Bones: No acute osseous abnormalities. Joints: No dislocations or subluxations. Soft tissues: Small calcification adjacent to the greater tuberosity. Other: No other significant findings. RAD/Shoulder min 2 Views IMPRESSION: Small soft tissue calcification may indicate peritendinitis calc area. No acute osseous findings. Reading Location: [place] [id number]
== END 2024-05-30 13:13 | disposition home or self-care (01) ==
PROVIDERS: Emergency Provider Emergency Medicine; Visit Provider Emergency Medicine
DX: M25.512 Pain in left shoulder (principal); M75.32 Calcific tendinitis of left shoulder; I25.10 Atherosclerotic heart disease of native coronary artery without angina pectoris; Z79.899 Other long term (current) drug therapy; Z79.85 Long-term (current) use of injectable non-insulin antidiabetic drugs
CPT/HCPCS: 73030; 93005; 99282